=== PATIENT | female | born 1990 | race American Indian/Alaskan Native ===

== ENCOUNTER 2016-09-06 04:53 | Emergency (ER) | payer SELFPAY ==
[2016-09-06 06:25] LABS: Basophils % (Auto) 0.7 % (0.0-1.8); Eosinophils % (Auto) 1.7 % (0.0-4.3); Hemoglobin 13.6 gm/dl (10.1-14.3); Mean Corpuscular HGB Conc 34 % (30-34); Mean Corpuscular Hemoglobin 29 pg (28-32); Mean Corpuscular Volume 85 fl (79-97); Platelet Count 282 K/mm3 (140-440); Red Blood Count 4.69 M/mm3 (3.65-5.03); Red Cell Distribution Width 13.1 % (13.2-15.2); White Blood Count 6.9 K/mm3 (4.5-11.0)
[2016-09-06 06:33] LABS: Bilirubin,Urine NEG (Negative); Blood,Urine SM (Negative); Ketones,Urine NEG (Negative); Leukocyte Esterase,Urine TR (Negative); Mucus,Urine FEW /HPF; Nitrite,Urine NEG (Negative); Protein,Urine <15 mg/dL mg/dL (Negative); Urobilinogen,Urine < 2.0 mg/dL (<2.0)
[2016-09-06 06:36] LABS: Alanine Aminotransferase 19 units/L (7-56); Albumin 4.1 g/dL (3.9-5); Albumin/Globulin Ratio 1.1 %; Alkaline Phosphatase 76 units/L (35-129); Anion Gap 18 mmol/L; BUN/Creatinine Ratio 21.42; Blood Urea Nitrogen 15 mg/dL (7-17); Calcium 9.4 mg/dL (8.4-10.2); Carbon Dioxide 25 mmol/L (22-30); Chloride 99.6 mmol/L (98-107); Glucose 96 mg/dL (65-100); Lipase 42 units/L (13-60); Potassium 4.1 mmol/L (3.6-5.0); Sodium 138 mmol/L (137-145); Total Protein 7.7 g/dL (6.3-8.2)
--- NOTE | 2016-09-06 06:56 | Emergency Department Report ---
Chief Complaint: Abdominal Pain Stated Complaint: STOMACH PAIN W/SWELLING/IRREGULAR MENSTRUAL CYCLES Time Seen by Provider: 09/06/16 06:51 - HPI History of Present Illness: She is 25-year-old female presents to ED complaining of right-sided abdominal pain times a couple months. Patient also states history of irregular cycles. She describes pain as pulling substernal sharp pain localized to her low healthy right region and sometimes umbilical region. She denies fevers/chills/nausea/vomiting/abdominal pain/ chest pains or shortness of breath or any other problems - ROS Review of Systems: As noted in HPI - Exam Vital Signs: Vital Signs 09/06/16 05:21 Temperature 98.1 F Pulse Rate 69 Respiratory 20 Rate Blood Pressure 128/83 O2 Sat by Pulse 100 Oximetry Physical Exam: GENERAL: Alert and oriented x3, no apparent distress, Normal Gait, atraumatic. ABDOMEN: No organomegaly was noted, Positive bowel sounds, soft, and non- distended. no Guarding. Nontender to palpation on all Quadrants, NO CVA tenderness. SKIN: Warm and dry, No lesions, No ulceration or induration present. MSE screening note: Focused history and physical exam performed. Due to findings the following was ordered: ED Medical Decision Making - Lab Data Result diagrams: 09/06/16 05:45 09/06/16 05:45 - Medical Decision Making all Labs are all normal. Urinalysis may suggest mild UTI, UPT negative Discussed this with patient. Discussed the patient possibly fibroids or thyroid dysfunction, which can be followed outpatient with SENSOR OPERATOR or primary care physician. Will order ultrasound. She can be seen by fast track provider. ED Disposition for MSE Condition: Stable Instructions: Abdominal Pain (ED)
--- NOTE | 2016-09-06 07:50 | Ultrasound Report ---
ULTRASOUND PELVIC COMPLETE ULTRASOUND TRANSVAGINAL HISTORY: Pelvic pain, irregular bleeding. TECHNIQUE: Transabdominal and transvaginal ultrasound with color doppler interrogation. Longitudinal and transverse real-time images of the pelvis demonstrate that the uterus and ovaries are present and in a normal location. They are of normal echogenicity, contour and size. No pathologic changes in the adjacent tissues are noted. The endometrium is homogeneous and measures 10 mm. IMPRESSION: Unremarkable transabdominal and transvaginal pelvic ultrasounds.
[2016-09-06] MEDS ORDERED: NACL ONE (08:30)
--- NOTE | 2016-09-06 08:35 | Emergency Department Report ---
ED Abdominal Pain HPI - General Chief Complaint: Abdominal Pain Stated Complaint: STOMACH PAIN W/SWELLING/IRREGULAR MENSTRUAL CYCLES Time Seen by Provider: 09/06/16 06:51 Source: patient Mode of arrival: Ambulatory Limitations: No Limitations - History of Present Illness Initial Comments: This is a 25-year-old female well-nourished with nontoxic or ill in appearance that presents with diffuse intermittent abdominal pain for a couple of months and pelvic pain. Patient stated has been having irregular cycles with hot flash. Patient describes pain as aching and dull diffusely and sometimes in the right sided upper and lower abdomen. Patient describes pain as intermittent cramping and aching. Patient also complains of umbilical region abdominal pain but denies currently. At this current time the patient states abdominal pain hasn't subsided but stated will most likely come back again tonight. Patient denies any aggravating factors. Denies fever, chills, nausea , epigastric pain, vomiting, chest pain, shortness of breath, numbness, tingling , headache, drowsiness, visual changes, stiff neck. Patient denies dysuria, polyuria, discharge, or foul odor in urine. Patient denies any suspicion of sexually transmitted disease. Patient stated her last normal menstrual period for 7 days was on 06/10/2015, and after has been having abnormal menstrual that last only 2-3 days throughout the month. Patient currently states she having an abnormal menstrual period now with spotting. Patient denies any allergies. Denies past medical hx. MD Complaint: abdominal pain (diffuse), other (pelvic pain ) -: Gradual, month(s) (6) Location: diffuse Radiation: none Migration to: no migration Severity: mild Severity scale (0 -10): 6 Quality: cramping, aching Consistency: intermittent Improves With: nothing Worsens With: nothing Associated Symptoms: denies other symptoms. denies: nausea, vomiting, diarrhea , fever, chills, constipation, dysuria, hematemesis, hematochezia, melena, hematuria, anorexia, syncope - Related Data LMP (females 10-50): other (today) Previous Rx's Medication Instructions Recorded Last Taken Type Ibuprofen [Motrin 600 MG tab] 600 mg PO Q8H PRN #15 tablet 09/06/16 Unknown Rx Nitrofurantoin [place]/M-Cryst 100 mg PO Q12HR #10 capsule 09/06/16 Unknown Rx [Macrobid CAP] Allergies Allergy/AdvReac Type Severity Reaction Status Date / Time No Known Allergies Allergy Unverified 09/06/16 05:19 ED Review of Systems ROS: Stated complaint: STOMACH PAIN W/SWELLING/IRREGULAR MENSTRUAL CYCLES Other details as noted in HPI Constitutional: denies: chills, fever Eyes: denies: eye pain, eye discharge, vision change ENT: denies: ear pain, throat pain Respiratory: denies: cough, shortness of breath, wheezing Cardiovascular: denies: chest pain, palpitations Endocrine: no symptoms reported Gastrointestinal: abdominal pain. denies: nausea, vomiting, diarrhea, constipation, hematemesis, melena, hematochezia Genitourinary: denies: urgency, dysuria, discharge Musculoskeletal: denies: back pain, joint swelling, arthralgia Skin: denies: rash, lesions Neurological: denies: headache, weakness, paresthesias Psychiatric: denies: anxiety, depression Hematological/Lymphatic: denies: easy bleeding, easy bruising ED Past Medical Hx - Past Medical History Previous Medical History?: No - Social History Smoking Status: Never Smoker Substance Use Type: None - Medications Home Medications: Home Medications Medication Instructions Recorded Confirmed Last Taken Type Ibuprofen [Motrin 600 MG tab] 600 mg PO Q8H PRN #15 tablet 09/06/16 Unknown Rx Nitrofurantoin [place]/M-Cryst 100 mg PO Q12HR #10 capsule 09/06/16 Unknown Rx [Macrobid CAP] ED Physical Exam - General Limitations: No Limitations General appearance: alert, in no apparent distress - Head Head exam: Present: atraumatic, normocephalic, normal inspection - Eye Eye exam: Present: normal appearance, PERRL, EOMI. Absent: scleral icterus, conjunctival injection, nystagmus, periorbital swelling, periorbital tenderness Pupils: Present: normal accommodation - ENT ENT exam: Present: normal exam, normal orophraynx, mucous membranes moist, TM's normal bilaterally, normal external ear exam - Neck Neck exam: Present: normal inspection, full ROM. Absent: tenderness, meningismus, lymphadenopathy, thyromegaly - Respiratory Respiratory exam: Present: normal lung sounds bilaterally. Absent: respiratory distress, wheezes, rales, rhonchi, stridor, chest wall tenderness, accessory muscle use, decreased breath sounds, prolonged expiratory - Cardiovascular Cardiovascular Exam: Present: regular rate, normal rhythm, normal heart sounds. Absent: bradycardia, tachycardia, irregular rhythm, systolic murmur, diastolic murmur, rubs, gallop - GI/Abdominal GI/Abdominal exam: Present: soft, normal bowel sounds. Absent: distended, tenderness, guarding, rebound, rigid, diminished bowel sounds, hyperactive bowel sounds, hypoactive bowel sounds, organomegaly, bruit, pulsatile mass, other (epigastric pain) - Expanded GI/Abdominal Exam Expanded GI/Abdominal exam: Absent: psoas sign, obturator sign, heel tap sign, Winslow's sign, Rovsing's sign, tenderness at Mcburney's Point, ascites - Rectal Rectal exam: Present: deferred - External exam: Present: normal external exam. Absent: erythema, swelling, lesions, lacerations, ecchymosis, bleeding Speculum exam: Present: normal speculum exam, vaginal bleeding (slight ). Absent: erythema, vaginal discharge, cervical discharge, foreign body, tissue, laceration Bi-manual exam: Present: normal bi-manual exam. Absent: cervical motion tendernes, adnexal tenderness, adnexal mass, uterine enlargement, uterine tenderness - Extremities Exam Extremities exam: Present: normal inspection, full ROM, normal capillary refill. Absent: tenderness, pedal edema, joint swelling, calf tenderness - Back Exam Back exam: Present: normal inspection, full ROM. Absent: tenderness, CVA tenderness (R), CVA tenderness (L), muscle spasm, paraspinal tenderness, vertebral tenderness, rash noted - Neurological Exam Neurological exam: Present: alert, oriented X3, CN II-XII intact, normal gait - Psychiatric Psychiatric exam: Present: normal affect, normal mood - Skin Skin exam: Present: warm, dry, intact, normal color. Absent: rash - Other Other exam information: Bimanual/pelvic speculum exam has been performed with amrita Lucas RN. ED Course Vital Signs 09/06/16 09/06/16 09/06/16 05:21 09:25 09:26 Temperature 98.1 F 97.6 F Pulse Rate 69 109 H Respiratory 20 16 16 Rate Blood Pressure 128/83 Blood Pressure 113/64 [Left] O2 Sat by Pulse 100 97 97 Oximetry ED Medical Decision Making - Lab Data Result diagrams: 09/06/16 05:45 09/06/16 05:45 - Medical Decision Making ED course: This is a 25-year-old female that presents with diffuse cramping pelvic/abdomen region with irregular menstrual cycles 1- after my physical exam, a CT of abdomen/pelvis with contrast has been obtained. 2- transvaginal and pelvic ultrasound has been obtained as well prior to me evaluating the patient with Normal findings. Dictated by Dr. Norwood. 3- UA, CBC, BMP, and test has been obtained. UA indicates elevated epithelial cells with leukocyte trace and small urine blood. 4- gonorrhea chlamydia and wet prep has been obtained. Patient was instructed to return to medical records in 3-5 business days to obtain results of gonorrhea /chlamydia. 5- a bimanual and speculum exam has been performed. 6- patient has been notified of all lab results as well as CT and pelvic ultrasound. The further course noted by the patient. 7- patient was instructed to follow-up with a data typist/primary care doctor in 24 hours or if symptoms worsen in unbearable report back to emergency room as soon as possible. 8- due to the findings of UTI suspicion patient received Macrobid for 5 days and was instructed to finish full course of antibiotics as prescribed. 9- at time time of discharge, the patient does not seem toxic or ill in appearance. No acute signs of distress noted. Patient agrees to discharge treatment plan of care. No further questions noted by the patient. Critical care attestation.: If time is entered above; I have spent that time in minutes in the direct care of this critically ill patient, excluding procedure time. ED Disposition Clinical Impression: Abnormal menstrual cycle, Dysmenorrhea Abdominal pain Qualifiers: Abdominal location: unspecified location Qualified Code(s): R10.9 - Unspecified abdominal pain Disposition: DC-01 TO HOME OR SELFCARE Is pt being admited?: No Does the pt Need Aspirin: No Condition: Stable Instructions: Dysmenorrhea (ED), Abdominal Pain (ED) Additional Instructions: Follow-up with a data typist/primary care doctor in 24 hours or if symptoms worsen in unbearable report back to emergency room as soon as possible. Take full course of antibiotics as prescribed. Prescriptions: Ibuprofen [Motrin 600 MG tab] 600 mg PO Q8H PRN #15 tablet PRN Reason: Pain Nitrofurantoin [place]/M-Cryst [Macrobid CAP] 100 mg PO Q12HR #10 capsule Referrals: [facility] [Outside] - 3-5 Days [facility] [Outside] - 3-5 Days NIXON ECHAVARRIA JR, MD [Staff Physician] - 3-5 Days MARIA HATCH MD [Staff Physician] - 24 Hours PRIMARY CAREMD [Primary Care Provider] - 24 Hours Forms: Work/School Release Form(ED)
--- NOTE | 2016-09-06 09:17 | Cat Scan Report ---
CT SCAN OF THE ABDOMEN AND PELVIS WITH CONTRAST: HISTORY: Abdominal pain. TECHNIQUE: Helical CT in 1.25mm intervals following IV contrast. Sagittal and coronal reconstructions. FINDINGS: The liver is normal in size and is without focal defect. No gallstones or biliary dilatation are noted. The spleen and pancreas demonstrate a normal size and attenuation with no evidence of abnormal mass. The kidneys are normal in size and position with no evidence of hydronephrosis or mass. The adrenal glands are normal. There is no intestinal obstruction or ascites. Normal appendix. The abdominal aorta is normal. No abnormalities are identified within the retroperitoneum or mesentery. There is no evidence of peritoneal air or fluid. There is no evidence of any abnormal masses or fluid collections within the pelvis. No adenopathy is identified. The bladder is normal. IMPRESSION: Unremarkable CT scan of the abdomen and pelvis with contrast.
[2016-09-06 09:26] VITALS: BP 113/64
== END 2016-09-06 11:19 | disposition home or self-care (01) ==
LOC: ED 04:53
DX: N94.6 Dysmenorrhea, unspecified (principal); N92.5 Other specified irregular menstruation; R10.84 Generalized abdominal pain
CPT/HCPCS: 36415; 74177; 76830; 76856; 80053; 81001; 83690; 84703; 85025; 87210; 87591; 99284; Q9967

== ENCOUNTER 2018-06-24 02:40 | Emergency (ER) | payer OTHER ==
[2018-06-24 03:48] VITALS: BP 136/89
--- NOTE | 2018-06-24 04:11 | XRay Report ---
PROCEDURE: XR WRIST 3+V LT TECHNIQUE: Left wrist radiographs, including AP, lateral, and oblique views. HISTORY: Left wrist and palm pain COMPARISONS: None . FINDINGS: Fracture (s) and/or Dislocation(s): None . Alignment: Normal . Joint space(s): Normal . Soft tissues: Normal . Bone mineralization: Normal . Foreign bodies: None . IMPRESSION: Normal Examination . This document is electronically signed by Karrie Clay DO., June 24 2018 04:09:21 AM ET
--- NOTE | 2018-06-24 07:49 | Emergency Department Report ---
Upper Extremity - HPI Chief Complaint: Extremity Injury, Upper Stated Complaint: L HAND PAIN Time Seen by Provider: 06/24/18 07:25 Upper Extremity: Left Wrist (pain ,swelling after injury) Occurred When: 2 Days Mechanism: Hyperextension, Twist Severity: moderate (5/10) Symptoms: Yes Pain with Movement (left wrist), Yes Limited Range of Movement (pain with movement), Yes Swelling, No Deformity, No Numbness, No Weakness, No Bruising/Ecchymosis, No Laceration or Abrasion Other History: This is a 27-year-old female here because she injured her left wrist pain and reported that she injured her left wrist 2 days ago and is swollen and painful. Denies any numbness or tingling or any change in color. No medication taken. Denies any broken skin. ED Review of Systems ROS: Stated complaint: L HAND PAIN Other details as noted in HPI Constitutional: denies: chills, fever Respiratory: denies: cough, shortness of breath, wheezing Cardiovascular: denies: chest pain, palpitations, edema, syncope Musculoskeletal: joint swelling, arthralgia. denies: back pain, myalgia Skin: denies: rash Neurological: denies: headache, numbness, paresthesias ED Past Medical Hx - Past Medical History Previous Medical History?: No - Surgical History Past Surgical History?: No - Family History Family history: hypertension - Social History Smoking Status: Never Smoker Substance Use Type: None - Medications Home Medications: Home Medications Medication Instructions Recorded Confirmed Last Taken Type Nitrofurantoin [place]/M-Cryst 100 mg PO Q12HR #10 capsule 09/06/16 Unknown Rx [Macrobid CAP] Acetaminophen/Codeine [Tylenol 1 tab PO Q6H PRN #12 tab 06/24/18 Unknown Rx /Codeine # 3 tab] Ibuprofen [Motrin 600 MG tab] 600 mg PO Q8H PRN #15 tablet 06/24/18 Unknown Rx Upper Extremity Exam - Exam General: Vital signs noted. No distress. Alert and acting appropriately. Head and Torso: No HEENT Abnormality, No Neck Tenderness, No Chest/Lungs Abnormality, No Abdominal Tenderness, No Back Tenderness Shoulder Exam: Yes Normal Range of Motion in Shoulder, No Shoulder Tenderness, No Clavicle Tenderness, No Shoulder Deformity, No AC Joint Tenderness Arm Exam: No Arm/Humerus Tenderness, No Arm Deformity Elbow: Yes Normal Range of Motion in Elbow, No Elbow Tenderness, No Elbow Deformity Forearm: No Forearm Tenderness, No Forearm Deformity, No Pain with Pronation, No Pain with Supination Wrist: Yes Wrist Tenderness (palmar aspect of left wrist radial side), Yes Normal ROM in Wrist (pain with range of motion), No Wrist Deformity, No Snuffbox Tenderness, No Pain with Axial Thumb Compression Hand: Yes Normal ROM in Digit(s), No Hand Tenderness, No Hand Deformity, No Digit Tenderness, No Digit(s) Deformity, No Tendon Dysfunction CMS Exam: Yes Normal Distal Pulses (No cce. + 2 pulses in all extremities, no neurovascular compromise), Yes Normal Capillary Refill (less than 2 seconds), Yes Normal Distal Sensation, No Broken Skin ED Course Vital Signs 06/24/18 03:45 Temperature 97.8 F Pulse Rate 75 Blood Pressure 136/89 O2 Sat by Pulse 98 Oximetry - Reevaluation(s) Reevaluation #1: 06/24/18 08:52 Patient given Motrin 800 mg at emergency room which relieved her wrist pain. She was placed in Velcro wrist splint and said pain is better. - Orthopedic Splinting/Casting Injury #1 Side: left Upper Extremity Injury Location: wrist Upper Extremity Immobilizer: wrist splint Additional Comments: Patient will good color, movement and sensation and temperature to fingers of left hand. ED Medical Decision Making - Radiology Data Radiology results: report reviewed Three-view x-ray of left wrist dictated by radiologist and reviewed by myself. See results below Findings [facility] [address] [place] [address] XRay Report Signed Patient: TIERNEY CLAY MR#: [id number] : 1990 Acct:[id number] Age/Sex: 27 / F ADM Date: 06/24/18 Loc: ED Attending Dr: Ordering Physician: ERIN DOWNEY MD Date of Service: 06/24/18 Procedure(s): XR wrist 3+V LT Accession Number(s): [id number] cc: ERIN DOWNEY MD Fluoro Time In Minutes: PROCEDURE: XR WRIST 3+V LT TECHNIQUE: Left wrist radiographs, including AP, lateral, and oblique views. HISTORY: Left wrist and palm pain COMPARISONS: None . FINDINGS: Fracture (s) and/or Dislocation(s): None . Alignment: Normal . Joint space(s): Normal . Soft tissues: Normal . Bone mineralization: Normal . Foreign bodies: None . IMPRESSION: Normal Examination . This document is electronically signed by Karrie Clay DO., June 24 2018 04:09:21 AM ET Transcribed By: [facility] Dictated By: KARRIE CLAY MD Electronically Authenticated By: KARRIE CLAY MD Signed Date/Time: 06/24/18410 DD/ 0 TD/TT: 06/24/18400 - Medical Decision Making This is a 27-year-old female here for left wrist injury 2 days ago. She reports pain and swelling. X-ray dictated radiologist report reviewed by myself and shows no fracture or dislocation. She has superficial swelling to palmar side of her wrists radial bone with tenderness to palpate. Patient with wrists sprain and was given Motrin which relieved her pain and Velcro wrist splint applied. See procedure note for detail. Patient discharged home in stable condition to rest, ice, compress and elevate affected area and to follow-up with orthopedic doctor if she continues to have pain. Discharge home on Motrin and Tylenol 3. She voiced understanding the discharge diagnosis and treatment plan - Differential Diagnosis fracture versus sprain versus musculoskeletal pain Critical care attestation.: If time is entered above; I have spent that time in minutes in the direct care of this critically ill patient, excluding procedure time. ED Disposition Clinical Impression: Left wrist sprain Qualifiers: Encounter type: initial encounter Qualified Code(s): S63.502A - Unspecified sprain of left wrist, initial encounter Disposition: TO HOME OR SELFCARE Is pt being admited?: No Does the pt Need Aspirin: No Condition: Stable Instructions: Wrist Injury (ED), Wrist Sprain (ED), RICE Therapy (ED) Additional Instructions: Please follow discharge instruction paperwork on rice therapy Follow up with orthopedic doctor in 3-5 days if your wrist is not any better. Take Tylenol 3 for severe pain and please do not drive or operate heavy machinery while taking this medication otherwise take Motrin for mild to moderate pain Prescriptions: Ibuprofen [Motrin 600 MG tab] 600 mg PO Q8H PRN #15 tablet PRN Reason: Pain Acetaminophen/Codeine [Tylenol /Codeine # 3 tab] 1 tab PO Q6H PRN #12 tab PRN Reason: severe pain [facility] [Primary Care Provider] - 3-5 Days EUNICE PALMA MD [Staff Physician] - 3-5 Days Forms: Work/School Release Form(ED), Accompanied Note
[2018-06-24] MEDS ORDERED: IBUPROFEN PO ONE (08:04)
== END 2018-06-24 09:05 | disposition home or self-care (01) ==
LOC: ED 02:40
DX: S63.502A Unspecified sprain of left wrist, initial encounter (principal); X58.XXXA Exposure to other specified factors, initial encounter; Y93.89 Activity, other specified; Y92.89 Other specified places as the place of occurrence of the external cause; Y99.8 Other external cause status

== ENCOUNTER 2018-08-26 12:01 | Emergency (ER) | payer SELFPAY ==
--- NOTE | 2018-08-26 12:24 | Emergency Department Report ---
Blank Doc - Documentation Documentation: 27 y o female presents with sore throat staes recent exposure to sick niece and symptoms started after that cc of intermittent fever, pain with swallowinng rapid strep ordered
[2018-08-26 12:29] VITALS: BP 138/80
[2018-08-26] MEDS ORDERED: BICILLIN L-A IM ONE (13:42)
--- NOTE | 2018-08-26 13:44 | Emergency Department Report ---
ED ENT HPI - General Chief complaint: Sore Throat Stated complaint: SORE THROAT Time Seen by Provider: 08/26/18 12:21 Source: patient Mode of arrival: Ambulatory Limitations: No Limitations - History of Present Illness Initial comments: Chief complaint: I knew I have strep throat." HPI 27-year-old healthy female who presents with sore throat swollen lymph nodes in her neck for the past several days. She had a sick contact family member with sore throat. Mild symptoms. Denies cough. Subjective fever. No nasal congestion. MD complaint: sore throat -: Gradual, days(s) (2) Location: throat Severity: mild Quality: burning, aching Consistency: constant Improves with: swallowing Worsens with: none Context- Dental: other (sick contact) - Related Data Previous Rx's Medication Instructions Recorded Last Taken Type Nitrofurantoin [place]/M-Cryst 100 mg PO Q12HR #10 capsule 09/06/16 Unknown Rx [Macrobid CAP] Acetaminophen/Codeine [Tylenol 1 tab PO Q6H PRN #12 tab 06/24/18 Unknown Rx /Codeine # 3 tab] Ibuprofen [Motrin 600 MG tab] 600 mg PO Q8H PRN #15 tablet 06/24/18 Unknown Rx Allergies Allergy/AdvReac Type Severity Reaction Status Date / Time No Known Allergies Allergy Verified 08/26/18 12:01 ED Dental HPI - General Chief complaint: Sore Throat Stated complaint: SORE THROAT Time Seen by Provider: 08/26/18 12:21 Source: patient Mode of arrival: Ambulatory Limitations: No Limitations - Related Data Previous Rx's Medication Instructions Recorded Last Taken Type Nitrofurantoin [place]/M-Cryst 100 mg PO Q12HR #10 capsule 09/06/16 Unknown Rx [Macrobid CAP] Acetaminophen/Codeine [Tylenol 1 tab PO Q6H PRN #12 tab 06/24/18 Unknown Rx /Codeine # 3 tab] Ibuprofen [Motrin 600 MG tab] 600 mg PO Q8H PRN #15 tablet 06/24/18 Unknown Rx Allergies Allergy/AdvReac Type Severity Reaction Status Date / Time No Known Allergies Allergy Verified 08/26/18 12:01 ED Review of Systems ROS: Stated complaint: SORE THROAT Other details as noted in HPI Constitutional: fever, malaise Respiratory: denies: cough, shortness of breath, wheezing ED Past Medical Hx - Past Medical History Previous Medical History?: No - Surgical History Past Surgical History?: No - Social History Smoking Status: Never Smoker Substance Use Type: None - Medications Home Medications: Home Medications Medication Instructions Recorded Confirmed Last Taken Type Nitrofurantoin [place]/M-Cryst 100 mg PO Q12HR #10 capsule 09/06/16 Unknown Rx [Macrobid CAP] Acetaminophen/Codeine [Tylenol 1 tab PO Q6H PRN #12 tab 06/24/18 Unknown Rx /Codeine # 3 tab] Ibuprofen [Motrin 600 MG tab] 600 mg PO Q8H PRN #15 tablet 06/24/18 Unknown Rx ED Physical Exam - General Limitations: No Limitations General appearance: alert, in no apparent distress - Head Head exam: Present: atraumatic, normocephalic - Eye Eye exam: Absent: scleral icterus, conjunctival injection, nystagmus - ENT ENT exam: Present: other (erythematous edematous tonsils not touching uvula symmetric in size) - Neck Neck exam: Present: normal inspection, full ROM. Absent: meningismus - Respiratory Respiratory exam: Present: normal lung sounds bilaterally. Absent: respiratory distress, wheezes, rales, rhonchi - Neurological Exam Neurological exam: Present: alert, oriented X3 - Psychiatric Psychiatric exam: Present: normal affect, normal mood - Skin Skin exam: Present: warm, dry, intact, normal color ED Course Vital Signs 08/26/18 12:28 Temperature 98.9 F Pulse Rate 103 H Respiratory 18 Rate Blood Pressure 138/80 O2 Sat by Pulse 99 Oximetry ED Medical Decision Making - Medical Decision Making Streptococcal pharyngitis positive rapid strep Given Bicillin in the emergency department Critical care attestation.: If time is entered above; I have spent that time in minutes in the direct care of this critically ill patient, excluding procedure time. ED Disposition Clinical Impression: Acute streptococcal pharyngitis Disposition: DC- TO HOME OR SELFCARE Is pt being admited?: No Does the pt Need Aspirin: No Condition: Stable Instructions: Strep Throat (ED) Referrals: KRISTINE GARCIA MD [Primary Care Provider] - 3-5 Days Forms: Work/School Release Form(ED)
== END 2018-08-26 14:50 | disposition home or self-care (01) ==
LOC: ED 12:01
DX: J02.0 Streptococcal pharyngitis (principal)
CPT/HCPCS: 87430; 99283; J0561

== ENCOUNTER 2018-11-24 07:04 | Emergency (ER) | payer OTHER ==
[2018-11-24 07:15] VITALS: BP 129/78
[2018-11-24 07:51] LABS: Bacteria,Urine 1+ /HPF (Negative); Bilirubin,Urine NEG (Negative); Blood,Urine NEG (Negative); Color,Urine Yellow (Yellow); Protein,Urine <15 mg/dL mg/dL (Negative); Urobilinogen,Urine < 2.0 mg/dL (<2.0)
[2018-11-24 07:52] LABS: HCG Qualitative,Urine Negative (Negative)
--- NOTE | 2018-11-24 08:53 | Emergency Department Report ---
ED Female HPI - General Chief complaint: Urogenital-Female Stated complaint: FREQ URINATION/PAINFUL Time Seen by Provider: 11/24/18 07:50 Source: patient Mode of arrival: Ambulatory Limitations: No Limitations - History of Present Illness Initial comments: This is a 27-year-old -Iranian female presents to the emergency room with urinary frequency and bladder pressure for 1 week. Patient states she is currently not sexually active. Her last menstrual period was 10/26/2018, 0. She denies hematuria, dysuria, vaginal discharge, or back pain. MD Complaint: other (urinary frequency) Onset/Timin -: week(s) Location: suprapubic Radiation: non-radiating Severity: mild Severity scale (0 -10): 2 Quality: other (pressure) Consistency: intermittent Improves with: none Worsens with: none Are you Now?: No Last Menstrual Period: 10/26/18 EDC: 08/02/19 Associated Symptoms: denies other symptoms - Related Data Sexually active: No : 0 Previous Rx's Medication Instructions Recorded Last Taken Type Acetaminophen/Codeine [Tylenol 1 tab PO Q6H PRN #12 tab 06/24/18 Unknown Rx /Codeine # 3 tab] Ibuprofen [Motrin 600 MG tab] 600 mg PO Q8H PRN #15 tablet 06/24/18 Unknown Rx Nitrofurantoin [place]/M-Cryst 100 mg PO Q12HR #14 capsule 10/25/18 Unknown Rx [Macrobid CAP] metroNIDAZOLE [Flagyl] 500 mg PO Q12HR #14 tab 10/25/18 Unknown Rx Fluconazole [Diflucan TAB] 150 mg PO ONCE #1 tablet 11/24/18 Unknown Rx metroNIDAZOLE [Flagyl TAB] 500 mg PO Q12HR #14 tab 11/24/18 Unknown Rx Allergies Allergy/AdvReac Type Severity Reaction Status Date / Time No Known Allergies Allergy Verified 11/24/18 07:06 ED Review of Systems ROS: Stated complaint: FREQ URINATION/PAINFUL Other details as noted in HPI Constitutional: denies: chills, fever Respiratory: denies: cough, shortness of breath, wheezing Cardiovascular: denies: chest pain, palpitations Gastrointestinal: abdominal pain (the pubic pressure). denies: nausea, diarrhea Genitourinary: frequency. denies: urgency, dysuria, discharge Musculoskeletal: denies: back pain, joint swelling, arthralgia Skin: denies: rash, lesions Neurological: denies: headache, weakness, paresthesias ED Past Medical Hx - Past Medical History Previous Medical History?: No - Surgical History Past Surgical History?: No - Social History Smoking Status: Current Some Day Smoker Substance Use Type: Alcohol - Medications Home Medications: Home Medications Medication Instructions Recorded Confirmed Last Taken Type Acetaminophen/Codeine [Tylenol 1 tab PO Q6H PRN #12 tab 06/24/18 Unknown Rx /Codeine # 3 tab] Ibuprofen [Motrin 600 MG tab] 600 mg PO Q8H PRN #15 tablet 06/24/18 Unknown Rx Nitrofurantoin [place]/M-Cryst 100 mg PO Q12HR #14 capsule 10/25/18 Unknown Rx [Macrobid CAP] metroNIDAZOLE [Flagyl] 500 mg PO Q12HR #14 tab 10/25/18 Unknown Rx Fluconazole [Diflucan TAB] 150 mg PO ONCE #1 tablet 11/24/18 Unknown Rx metroNIDAZOLE [Flagyl TAB] 500 mg PO Q12HR #14 tab 11/24/18 Unknown Rx ED Physical Exam - General Limitations: No Limitations General appearance: alert, in no apparent distress, obese - Respiratory Respiratory exam: Present: normal lung sounds bilaterally. Absent: respiratory distress - Cardiovascular Cardiovascular Exam: Present: regular rate, normal rhythm. Absent: systolic murmur, diastolic murmur, rubs, gallop - GI/Abdominal GI/Abdominal exam: Present: soft, normal bowel sounds. Absent: distended, tenderness, guarding, rebound, rigid - External exam: Present: normal external exam. Absent: erythema, swelling, lesions, lacerations, ecchymosis, bleeding Speculum exam: Present: vaginal discharge (malodorous white). Absent: cervical discharge, vaginal bleeding, foreign body, tissue, laceration Bi-manual exam: Present: normal bi-manual exam. Absent: cervical motion tendernes - Back Exam Back exam: Absent: CVA tenderness (R), CVA tenderness (L) - Neurological Exam Neurological exam: Present: alert, oriented X3, normal gait - Psychiatric Psychiatric exam: Present: normal affect, normal mood - Skin Skin exam: Present: warm, dry, intact, normal color. Absent: rash ED Course Vital Signs 11/24/18 07:13 Temperature 98.2 F Pulse Rate 75 Respiratory 20 Rate Blood Pressure 129/78 O2 Sat by Pulse 100 Oximetry ED Medical Decision Making - Lab Data Lab Results 11/24/18 Range/Units 07:36 Urine Color Yellow (Yellow) Urine Turbidity Clear (Clear) Urine pH 8.0 H (5.0-7.0) Ur Specific [place] 1.016 (1.003-1.030) Urine Protein <15 mg/dl (Negative) mg/dL Urine Glucose (UA) Neg (Negative) mg/dL Urine Ketones Neg (Negative) mg/dL Urine Blood Neg (Negative) Urine Nitrite Neg (Negative) Urine Bilirubin Neg (Negative) Urine Urobilinogen < 2.0 (<2.0) mg/dL Ur Leukocyte Esterase Neg (Negative) Urine WBC (Auto) 1.0 (0.0-6.0) /HPF Urine RBC (Auto) 2.0 (0.0-6.0) /HPF U Epithel Cells (Auto) 4.0 (0-13.0) /HPF Urine Bacteria (Auto) 1+ (Negative) /HPF Urine HCG, Qual Negative (Negative) - Medical Decision Making Patient was examined by me. Vitals are stable and in no acute distress. Patient was treated for acute vaginitis and trichomoniasis 1 week ago. She is still experiencing vaginal discharge and itching sensation. A urinalysis and wet prep was obtained. Wet prep positive clue cells and yeast, negative trichomoniasis. Urinalysis unremarkable. Review labs from last week and gonorrhea chlamydia was negative. Review lab results from today and last week with patient. Start metronidazole and Diflucan. Discharged home in stable condition. Discussed prevention options. F/U with PCP or Health Department. Critical care attestation.: If time is entered above; I have spent that time in minutes in the direct care of this critically ill patient, excluding procedure time. ED Disposition Clinical Impression: Bacterial vaginitis, Vulvovaginal candidiasis Disposition: -01 TO HOME OR SELFCARE Is pt being admited?: No Does the pt Need Aspirin: No Condition: Stable Instructions: Bacterial Vaginosis (ED), Vulvovaginal Candidiasis (ED) Additional Instructions: Take Diflucan after completing 7 days of metronidazole antibiotic. Avoid drinking alcohol while taking antibiotics and for 24 hours after completion. Complete full course of antibiotics as prescribed. Continue safe sexual intercourse. Follow up with Primary Care Provider or health department. Prescriptions: Fluconazole [Diflucan TAB] 150 mg PO ONCE #1 tablet metroNIDAZOLE [Flagyl TAB] 500 mg PO Q12HR #14 tab Referrals: [facility] [Outside] - 3-5 Days [facility] [Outside] - 3-5 Days Forms: STI Treatment and Prevention Time of Disposition: 10:56
== END 2018-11-24 11:10 | disposition home or self-care (01) ==
LOC: ED 07:04
DX: N76.0 Acute vaginitis (principal); B96.89 Other specified bacterial agents as the cause of diseases classified elsewhere; B37.3 Candidiasis of vulva and vagina; F17.200 Nicotine dependence, unspecified, uncomplicated; Z79.899 Other long term (current) drug therapy
CPT/HCPCS: 81001; 81025; 87210

== ENCOUNTER 2019-01-22 06:41 | Emergency (ER) | payer OTHER ==
[2019-01-22 06:50] VITALS: BP 128/86
[2019-01-22 07:19] LABS: Bilirubin,Urine NEG (Negative); Blood,Urine NEG (Negative); Color,Urine Straw (Yellow); Mucus,Urine FEW /HPF; Protein,Urine <15 mg/dL mg/dL (Negative); Urobilinogen,Urine < 2.0 mg/dL (<2.0)
[2019-01-22 07:46] LABS: Basophils % (Auto) 0.7 % (0.0-1.8); Eosinophils # (Auto) 0.2 K/mm3 (0.0-0.4); Eosinophils % (Auto) 3.7 % (0.0-4.3); Hematocrit 39.3 % (30.3-42.9); Hemoglobin 13.3 gm/dl (10.1-14.3); Lymphocytes # (Auto) 2.9 K/mm3 (1.2-5.4); Lymphocytes % (Auto) 47.3 % (13.4-35.0); Mean Corpuscular HGB Conc 34 % (30-34); Mean Corpuscular Volume 87 fl (79-97); Monocytes # (Auto) 0.5 K/mm3 (0.0-0.8); Monocytes % (Auto) 8.3 % (0.0-7.3); Platelet Count 286 K/mm3 (140-440); Red Cell Distribution Width 13.3 % (13.2-15.2)
--- NOTE | 2019-01-22 07:47 | Emergency Department Report ---
ED Female HPI - General Chief complaint: Abdominal Pain Stated complaint: ABD PAIN Time Seen by Provider: 01/22/19 07:31 Source: patient Mode of arrival: Ambulatory Limitations: No Limitations - History of Present Illness Initial comments: This is a 28-year-old -[place] female who presents to the emergency room with vaginal discharge, vaginal irritation and pain for several days. Patient states she was recently treated for trichomoniasis and bacterial vaginitis 2-3 months ago. Patient reports symptoms are very similar to the last time. She denies urinary frequency, urgency, dysuria, pelvic pain, back pain, fever, or chills. Onset/Timin -: days(s) Severity: mild Severity scale (0 -10): 3 Quality: aching Consistency: intermittent Improves with: none Worsens with: urination Are you Now?: No Last Menstrual Period: 01/10/19 EDC: 10/17/19 Associated Symptoms: vaginal discharge. denies: vaginal bleeding, abdominal pain, nausea/vomiting, fever/chills, dysuria, hematuria - Related Data Sexually active: Yes Previous Rx's Medication Instructions Recorded Last Taken Type Acetaminophen/Codeine [Tylenol 1 tab PO Q6H PRN #12 tab 06/24/18 Unknown Rx /Codeine # 3 tab] Ibuprofen [Motrin 600 MG tab] 600 mg PO Q8H PRN #15 tablet 06/24/18 Unknown Rx Nitrofurantoin [place]/M-Cryst 100 mg PO Q12HR #14 capsule 10/25/18 Unknown Rx [Macrobid CAP] metroNIDAZOLE [Flagyl] 500 mg PO Q12HR #14 tab 10/25/18 Unknown Rx Fluconazole [Diflucan TAB] 150 mg PO ONCE #1 tablet 11/24/18 Unknown Rx metroNIDAZOLE [Flagyl TAB] 500 mg PO Q12HR #14 tab 11/24/18 Unknown Rx Allergies Allergy/AdvReac Type Severity Reaction Status Date / Time No Known Allergies Allergy Verified 11/24/18 07:06 ED Review of Systems ROS: Stated complaint: ABD PAIN Other details as noted in HPI Constitutional: denies: chills, fever Respiratory: denies: cough, shortness of breath, wheezing Cardiovascular: denies: chest pain, palpitations Gastrointestinal: denies: abdominal pain, nausea, diarrhea Genitourinary: discharge. denies: urgency, dysuria Musculoskeletal: as per HPI Neurological: denies: headache, weakness, paresthesias Psychiatric: denies: anxiety, depression ED Past Medical Hx - Past Medical History Previous Medical History?: No - Surgical History Past Surgical History?: No - Social History Smoking Status: Never Smoker Substance Use Type: None - Medications Home Medications: Home Medications Medication Instructions Recorded Confirmed Last Taken Type Acetaminophen/Codeine [Tylenol 1 tab PO Q6H PRN #12 tab 06/24/18 Unknown Rx /Codeine # 3 tab] Ibuprofen [Motrin 600 MG tab] 600 mg PO Q8H PRN #15 tablet 06/24/18 Unknown Rx Nitrofurantoin [place]/M-Cryst 100 mg PO Q12HR #14 capsule 10/25/18 Unknown Rx [Macrobid CAP] metroNIDAZOLE [Flagyl] 500 mg PO Q12HR #14 tab 10/25/18 Unknown Rx Fluconazole [Diflucan TAB] 150 mg PO ONCE #1 tablet 11/24/18 Unknown Rx metroNIDAZOLE [Flagyl TAB] 500 mg PO Q12HR #14 tab 11/24/18 Unknown Rx ED Physical Exam - General Limitations: No Limitations General appearance: alert, in no apparent distress, obese - Respiratory Respiratory exam: Present: normal lung sounds bilaterally. Absent: respiratory distress - Cardiovascular Cardiovascular Exam: Present: regular rate, normal rhythm. Absent: systolic murmur, diastolic murmur, rubs, gallop - GI/Abdominal GI/Abdominal exam: Present: soft, normal bowel sounds ED Course Vital Signs 01/22/19 06:45 Temperature 98.0 F Pulse Rate 72 Respiratory 18 Rate Blood Pressure 128/86 O2 Sat by Pulse 100 Oximetry ED Medical Decision Making - Lab Data Result diagrams: 01/22/19 07:08 01/22/19 07:08 Lab Results 01/22/19 01/22/19 01/22/19 Range/Units 07:08 07:08 07:08 WBC 6.2 (4.5-11.0) K/mm3 RBC 4.50 (3.65-5.03) M/mm3 Hgb 13.3 (10.1-14.3) gm/dl Hct 39.3 (30.3-42.9) % MCV 87 (79-97) fl MCH 30 (28-32) pg MCHC 34 (30-34) % RDW 13.3 (13.2-15.2) % Plt Count 286 (140-440) K/mm3 Lymph % (Auto) 47.3 H (13.4-35.0) % Todd % (Auto) 8.3 H (0.0-7.3) % Eos % (Auto) 3.7 (0.0-4.3) % Baso % (Auto) 0.7 (0.0-1.8) % Lymph # 2.9 (1.2-5.4) K/mm3 Todd # 0.5 (0.0-0.8) K/mm3 Eos # 0.2 (0.0-0.4) K/mm3 Baso # 0.0 (0.0-0.1) K/mm3 Seg Neutrophils % 40.0 (40.0-70.0) % Seg Neutrophils # 2.5 (1.8-7.7) K/mm3 Sodium 138 (137-145) mmol/L Potassium 4.4 (3.6-5.0) mmol/L Chloride 101.2 (98-107) mmol/L Carbon Dioxide 24 (22-30) mmol/L Anion Gap 17 mmol/L BUN 13 (7-17) mg/dL Creatinine 0.8 (0.7-1.2) mg/dL Estimated GFR > 60 ml/min BUN/Creatinine Ratio 16 % Glucose 94 (65-100) mg/dL Calcium 9.4 (8.4-10.2) mg/dL Total Bilirubin 0.30 (0.1-1.2) mg/dL AST 16 (5-40) units/L ALT 14 (7-56) units/L Alkaline Phosphatase 63 (35-129) units/L Total Protein 7.9 (6.3-8.2) g/dL Albumin 4.2 (3.9-5) g/dL Albumin/Globulin Ratio 1.1 % HCG, Qual Negative (Negative) Urine Color (Yellow) Urine Turbidity (Clear) Urine pH (5.0-7.0) Ur Specific [place] (1.003-1.030) Urine Protein (Negative) mg/dL Urine Glucose (UA) (Negative) mg/dL Urine Ketones (Negative) mg/dL Urine Blood (Negative) Urine Nitrite (Negative) Urine Bilirubin (Negative) Urine Urobilinogen (<2.0) mg/dL Ur Leukocyte Esterase (Negative) Urine WBC (Auto) (0.0-6.0) /HPF Urine RBC (Auto) (0.0-6.0) /HPF U Epithel Cells (Auto) (0-13.0) /HPF Urine Mucus /HPF 01/22/19 Range/Units Unknown WBC (4.5-11.0) K/mm3 RBC (3.65-5.03) M/mm3 Hgb (10.1-14.3) gm/dl Hct (30.3-42.9) % MCV (79-97) fl MCH (28-32) pg MCHC (30-34) % RDW (13.2-15.2) % Plt Count (140-440) K/mm3 Lymph % (Auto) (13.4-35.0) % Todd % (Auto) (0.0-7.3) % Eos % (Auto) (0.0-4.3) % Baso % (Auto) (0.0-1.8) % Lymph # (1.2-5.4) K/mm3 Todd # (0.0-0.8) K/mm3 Eos # (0.0-0.4) K/mm3 Baso # (0.0-0.1) K/mm3 Seg Neutrophils % (40.0-70.0) % Seg Neutrophils # (1.8-7.7) K/mm3 Sodium (137-145) mmol/L Potassium (3.6-5.0) mmol/L Chloride (98-107) mmol/L Carbon Dioxide (22-30) mmol/L Anion Gap mmol/L BUN (7-17) mg/dL Creatinine (0.7-1.2) mg/dL Estimated GFR ml/min BUN/Creatinine Ratio % Glucose (65-100) mg/dL Calcium (8.4-10.2) mg/dL Total Bilirubin (0.1-1.2) mg/dL AST (5-40) units/L ALT (7-56) units/L Alkaline Phosphatase (35-129) units/L Total Protein (6.3-8.2) g/dL Albumin (3.9-5) g/dL Albumin/Globulin Ratio % HCG, Qual (Negative) Urine Color [place]raw (Yellow) Urine Turbidity Clear (Clear) Urine pH 6.0 (5.0-7.0) Ur Specific [place] 1.010 (1.003-1.030) Urine Protein <15 mg/dl (Negative) mg/dL Urine Glucose (UA) Neg (Negative) mg/dL Urine Ketones Neg (Negative) mg/dL Urine Blood Neg (Negative) Urine Nitrite Neg (Negative) Urine Bilirubin Neg (Negative) Urine Urobilinogen < 2.0 (<2.0) mg/dL Ur Leukocyte Esterase Neg (Negative) Urine WBC (Auto) 1.0 (0.0-6.0) /HPF Urine RBC (Auto) 2.0 (0.0-6.0) /HPF U Epithel Cells (Auto) 3.0 (0-13.0) /HPF Urine Mucus Few /HPF - Medical Decision Making This is a 28-year-old -[place] female who presents with vaginal irritation and discharge for several days. Patient was examined by me. Vitals are stable and in no acute distress. Obtained labs and pelvic exam performed. Wet prep negative for Trichomonas, yeast, and clue cells. Gonorrhea and chlam ydia pending. All other labs are unremarkable. Referral to gynecology for follow-up. Discharged home in stable condition. Discussed prevention options. Critical care attestation.: If time is entered above; I have spent that time in minutes in the direct care of this critically ill patient, excluding procedure time. ED Disposition Clinical Impression: Vaginal discharge Disposition: DC-01 TO HOME OR SELFCARE Is pt being admited?: No Condition: Stable Instructions: Abdominal Pain (ED) Additional Instructions: Follow-up with a shoe parts molder from the referral list below. Referrals: [facility] [Provider Group] - 3-5 Days [facility] [Provider Group] - 3-5 Days [facility] [Provider Group] - 3-5 Days Forms: Work/School Release Form(ED) Time of Disposition: 09:58
[2019-01-22 08:12] LABS: Alanine Aminotransferase 14 units/L (7-56); Albumin 4.2 g/dL (3.9-5); BUN/Creatinine Ratio 16; Blood Urea Nitrogen 13 mg/dL (7-17); Calcium 9.4 mg/dL (8.4-10.2); Hemolysis Index 39
[2019-01-22] MEDS ORDERED: LIDOCAINE-MPF (1%) 10 MG/1 ML VIAL 5 ML INFILTRATI ONE (10:02)
[2019-01-22] MEDS ORDERED: AZITHROMYCIN 250 MG TAB PO ONE (10:02)
== END 2019-01-22 10:14 | disposition home or self-care (01) ==
LOC: ED 06:41
DX: N89.8 Other specified noninflammatory disorders of vagina (principal); Z79.899 Other long term (current) drug therapy
CPT/HCPCS: 36415; 80053; 81001; 84703; 85025; 87210; 87591

== ENCOUNTER 2019-03-12 10:23 | Emergency (ER) | payer OTHER ==
[2019-03-12] MEDS ORDERED: IBUPROFEN 600 MG TAB PO ONE (14:30)
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
[2019-03-12 15:48] VITALS: BP 133/79
== END 2019-03-12 18:06 | disposition home or self-care (01) ==
LOC: ED 10:23
DX: S80.12XA Contusion of left lower leg, initial encounter (principal); S80.11XA Contusion of right lower leg, initial encounter; F17.200 Nicotine dependence, unspecified, uncomplicated; V49.49XA Driver injured in collision with other motor vehicles in traffic accident, initial encounter; Y93.89 Activity, other specified; Y92.488 Other paved roadways as the place of occurrence of the external cause; Y99.8 Other external cause status
CPT/HCPCS: 72100; 99283

== ENCOUNTER 2021-01-21 07:39 | Emergency (ER) | payer SELFPAY ==
[2021-01-21 07:57] VITALS: BP 120/57
--- NOTE | 2021-01-21 07:57 | Emergency Department Report ---
ED Female HPI - General Chief complaint: Urogenital-Female Stated complaint: vaginal irritation Time Seen by Provider: 01/21/21 07:54 Source: patient Mode of arrival: Ambulatory Limitations: No Limitations - History of Present Illness Initial comments: The patient was evaluated in the emergency department for symptoms described in the history of present illness. He/she was evaluated in the context of the global COVID-19 pandemic, which necessitated consideration that the patient might be at risk for infection with the virus that causes COVID-19. Institutional protocols and algorithms that pertain to the evaluation of patients at risk for COVID-19 are in a state of rapid change based on information released by regulatory bodies including the CDC and federal and state organizations. These policies and algorithms were followed during the patient's care in the emergency department. Please note that these policies, procedures and recommendations changed on a rapid basis. 30-year-old -[place] female presents to the emergency room complaining of vaginal irritation. Patient states that she was treated for urinary tract infection on January 13, 2021 with Macrobid. She states since she has been taking the medication she has been having soreness.. She is has no concern for STD. She had a wet prep done last visit which was all normal. She has not tried any wwgu-jbw-fqlodua medication and did not follow-up with a [facility] PROGRAM COORDINATOR. Onset/Timin -: week(s) Severity scale (0 -10): 6 - Related Data Previous Rx's Medication Instructions Recorded Last Taken Type Acetaminophen/Codeine [Tylenol 1 tab PO Q6H PRN #12 tab 06/24/18 Unknown Rx /Codeine # 3 tab] Ibuprofen [Motrin 600 MG tab] 600 mg PO Q8H PRN #15 tablet 06/24/18 Unknown Rx Nitrofurantoin [place]/M-Cryst 100 mg PO Q12HR #14 capsule 10/25/18 Unknown Rx [Macrobid CAP] metroNIDAZOLE [Flagyl] 500 mg PO Q12HR #14 tab 10/25/18 Unknown Rx Fluconazole (Nf) [Diflucan TAB] 150 mg PO ONCE #1 tablet 11/24/18 Unknown Rx metroNIDAZOLE [Flagyl TAB] 500 mg PO Q12HR #14 tab 11/24/18 Unknown Rx Ibuprofen [Motrin] 600 mg PO Q8H PRN #24 tablet 03/12/19 Unknown Rx Naproxen [EC-Naprosyn] 500 mg PO BID #20 tablet. 01/13/21 Unknown Rx Nitrofurantoin [place]/M-Cryst 100 mg PO Q12HR #14 capsule 01/13/21 Unknown Rx [Macrobid CAP] Allergies Allergy/AdvReac Type Severity Reaction Status Date / Time No Known Allergies Allergy Verified 01/21/21 07:46 ED Review of Systems ROS: Stated complaint: vaginal irritation Other details as noted in HPI ED Past Medical Hx - Social History Smoking Status: Current Some Day Smoker Substance Use Type: None - Medications Home Medications: Home Medications Medication Instructions Recorded Confirmed Last Taken Type Acetaminophen/Codeine [Tylenol 1 tab PO Q6H PRN #12 tab 06/24/18 Unknown Rx /Codeine # 3 tab] Ibuprofen [Motrin 600 MG tab] 600 mg PO Q8H PRN #15 tablet 06/24/18 Unknown Rx Nitrofurantoin [place]/M-Cryst 100 mg PO Q12HR #14 capsule 10/25/18 Unknown Rx [Macrobid CAP] metroNIDAZOLE [Flagyl] 500 mg PO Q12HR #14 tab 10/25/18 Unknown Rx Fluconazole (Nf) [Diflucan TAB] 150 mg PO ONCE #1 tablet 11/24/18 Unknown Rx metroNIDAZOLE [Flagyl TAB] 500 mg PO Q12HR #14 tab 11/24/18 Unknown Rx Ibuprofen [Motrin] 600 mg PO Q8H PRN #24 tablet 03/12/19 Unknown Rx Naproxen [EC-Naprosyn] 500 mg PO BID #20 tablet. 01/13/21 Unknown Rx Nitrofurantoin [place]/M-Cryst 100 mg PO Q12HR #14 capsule 01/13/21 Unknown Rx [Macrobid CAP] ED Physical Exam - General Limitations: No Limitations General appearance: alert, in no apparent distress - Head Head exam: Present: atraumatic, normocephalic - Eye Eye exam: Present: normal appearance - ENT ENT exam: Present: mucous membranes moist - Neck Neck exam: Present: normal inspection - Respiratory Respiratory exam: Present: normal lung sounds bilaterally. Absent: respiratory distress - Cardiovascular Cardiovascular Exam: Present: regular rate, normal rhythm. Absent: systolic murmur, diastolic murmur, rubs, gallop - GI/Abdominal GI/Abdominal exam: Present: soft, normal bowel sounds - External exam: Present: erythema. Absent: swelling, lesions, bleeding Speculum exam: Present: normal speculum exam - Extremities Exam Extremities exam: Present: normal inspection - Back Exam Back exam: Present: normal inspection - Neurological Exam Neurological exam: Present: alert, oriented X3 - Psychiatric Psychiatric exam: Present: normal affect, normal mood - Skin Skin exam: Present: warm, dry, intact, normal color. Absent: rash ED Course Vital Signs 01/21/21 07:48 Temperature 98.2 F Pulse Rate 71 Respiratory 18 Rate Blood Pressure 120/57 O2 Sat by Pulse 98 Oximetry ED Medical Decision Making - Medical Decision Making 30-year-old -[place] female presents to the emergency room complaining of vaginal irritation. Patient states that she was treated for urinary tract infection on January 13, 2021 with Macrobid. She states since she has been taking the medication she has been having soreness.. She is has no concern for STD. She had a wet prep done last visit which was all normal. She has not tried any zuty-thg-dgzzfaz medication and did not follow-up with a [facility] PROGRAM COORDINATOR. Labia within normal limits around the vaginal orifice mild erythematous. Nonedematous no lesions appreciated Recommend kits-dsl-vdtbgtk vaginocele vaginal lubricant for friction and to follow-up with the CD[facility] PROGRAM COORDINATOR Critical care attestation.: If time is entered above; I have spent that time in minutes in the direct care of this critically ill patient, excluding procedure time. ED Disposition Clinical Impression: Vaginal irritation Disposition: HOME / SELF CARE / HOMELESS Is pt being admited?: No Does the pt Need Aspirin: No Condition: Stable Instructions: Vaginitis, Pkle-gc-Ayqw Additional Instructions: Recommend vurd-wun-ciqzwje Monistat or Vagisil to rub on the outer labia. Follow-up with a [facility] PROGRAM COORDINATOR. Tylenol or ibuprofen as needed for pain management. Be sure to increase your fluid intake. Referrals: [facility] [Provider Group] - 3-5 Days [facility] [Provider Group] - 3-5 Days Time of Disposition: 09:04
== END 2021-01-21 09:17 | disposition home or self-care (01) ==
LOC: ED 07:39
DX: N89.8 Other specified noninflammatory disorders of vagina (principal); F17.200 Nicotine dependence, unspecified, uncomplicated
CPT/HCPCS: 99281

== ENCOUNTER 2021-10-21 16:11 | Emergency (ER) | payer SELFPAY ==
[2021-10-21 16:21] VITALS: BP 95/62
== END 2021-10-21 22:30 ==
LOC: ED 16:11
DX: R10.9 Unspecified abdominal pain (principal); Z53.21 Procedure and treatment not carried out due to patient leaving prior to being seen by health care provider

== ENCOUNTER 2021-10-31 09:37 | Emergency (ER) | payer SELFPAY ==
[2021-10-31 11:52] LABS: Basophils % (Auto) 0.5 % (0.0-1.8); Eosinophils % (Auto) 0.6 % (0.0-4.3); Hematocrit 41.4 % (30.3-42.9); Hemoglobin 13.7 gm/dl (10.1-14.3); Lymphocytes # (Auto) 2.5 K/mm3 (1.2-5.4); Lymphocytes % (Auto) 43.7 % (13.4-35.0); Mean Corpuscular HGB Conc 33 % (30-34); Mean Corpuscular Volume 88 fl (79-97); Monocytes # (Auto) 0.4 K/mm3 (0.0-0.8); Monocytes % (Auto) 7.2 % (0.0-7.3); Platelet Count 308 K/mm3 (140-440); Red Blood Count 4.72 M/mm3 (3.65-5.03); Red Cell Distribution Width 13.6 % (13.2-15.2)
[2021-10-31 15:25] LABS: Bilirubin,Urine NEG (Negative); Blood,Urine SM (Negative); Color,Urine Yellow (Yellow); Urobilinogen,Urine < 2.0 mg/dL (<2.0)
[2021-10-31 15:29] LABS: Mucus,Urine 3+ /HPF
--- NOTE | 2021-10-31 15:42 | Emergency Department Report ---
ED Abdominal Pain HPI - General Chief Complaint: Vaginal Bleeding Stated Complaint: ABD PAIN/VAGINAL IRR/URINATION ISSUES Time Seen by Provider: 10/31/21 14:20 Source: patient Mode of arrival: Ambulatory Limitations: No Limitations - History of Present Illness Initial Comments: 30-year-old black female with no past medical history presents to the emergency department for evaluation of 2-week history of abdominal pain and dark urine. She states that she attempted to use some xwaq-vbm-xeazeau AZO without any improvement. She denies fever, nausea, vomiting, dysuria, and vaginal discharge. MD Complaint: abdominal pain -: Gradual, week(s) (2.) Location: suprapubic Radiation: none Migration to: no migration Severity: moderate Severity scale (0 -10): 6 Quality: cramping, aching Associated Symptoms: denies: nausea, vomiting, diarrhea, fever, chills, dysuria, hematemesis, hematochezia, melena, hematuria, anorexia, syncope Treatments Prior to Arrival: other (Xlgi-gir-swfcgzb Azo) - Related Data Previous Rx's Medication Instructions Recorded Last Taken Type Acetaminophen/Codeine [Tylenol 1 tab PO Q6H PRN #12 tab 06/24/18 Unknown Rx /Codeine # 3 tab] Ibuprofen [Motrin 600 MG tab] 600 mg PO Q8H PRN #15 tablet 06/24/18 Unknown Rx Nitrofurantoin [place]/M-Cryst 100 mg PO Q12HR #14 capsule 10/25/18 Unknown Rx [Macrobid CAP] metroNIDAZOLE [Flagyl] 500 mg PO Q12HR #14 tab 10/25/18 Unknown Rx Fluconazole (Nf) [Diflucan TAB] 150 mg PO ONCE #1 tablet 11/24/18 Unknown Rx metroNIDAZOLE [Flagyl TAB] 500 mg PO Q12HR #14 tab 11/24/18 Unknown Rx Ibuprofen [Motrin] 600 mg PO Q8H PRN #24 tablet 03/12/19 Unknown Rx Naproxen [EC-Naprosyn] 500 mg PO BID #20 tablet 01/13/21 Unknown Rx Nitrofurantoin [place]/M-Cryst 100 mg PO Q12HR #14 capsule 01/13/21 Unknown Rx [Macrobid CAP] cephALEXin [Keflex] 500 mg PO Q12HR 5 Days #10 cap 10/31/21 Unknown Rx Allergies Allergy/AdvReac Type Severity Reaction Status Date / Time No Known Allergies Allergy Verified 10/31/21 09:56 ED Review of Systems ROS: Stated complaint: ABD PAIN/VAGINAL IRR/URINATION ISSUES Other details as noted in HPI Comment: All other systems reviewed and negative Constitutional: denies: chills, fever, malaise, weakness ENT: denies: congestion Respiratory: denies: shortness of breath Cardiovascular: denies: chest pain, palpitations Gastrointestinal: abdominal pain. denies: nausea, vomiting, diarrhea, hematemesis, melena, hematochezia Genitourinary: denies: urgency, dysuria, frequency, hematuria, discharge, abnormal menses Musculoskeletal: denies: back pain Neurological: denies: headache, weakness ED Past Medical Hx - Social History Smoking Status: Never Smoker Substance Use Type: None - Medications Home Medications: Home Medications Medication Instructions Recorded Confirmed Last Taken Type Acetaminophen/Codeine [Tylenol 1 tab PO Q6H PRN #12 tab 06/24/18 Unknown Rx /Codeine # 3 tab] Ibuprofen [Motrin 600 MG tab] 600 mg PO Q8H PRN #15 tablet 06/24/18 Unknown Rx Nitrofurantoin [place]/M-Cryst 100 mg PO Q12HR #14 capsule 10/25/18 Unknown Rx [Macrobid CAP] metroNIDAZOLE [Flagyl] 500 mg PO Q12HR #14 tab 10/25/18 Unknown Rx Fluconazole (Nf) [Diflucan TAB] 150 mg PO ONCE #1 tablet 11/24/18 Unknown Rx metroNIDAZOLE [Flagyl TAB] 500 mg PO Q12HR #14 tab 11/24/18 Unknown Rx Ibuprofen [Motrin] 600 mg PO Q8H PRN #24 tablet 03/12/19 Unknown Rx Naproxen [EC-Naprosyn] 500 mg PO BID #20 tablet. 01/13/21 Unknown Rx Nitrofurantoin [place]/M-Cryst 100 mg PO Q12HR #14 capsule 01/13/21 Unknown Rx [Macrobid CAP] cephALEXin [Keflex] 500 mg PO Q12HR 5 Days #10 cap 10/31/21 Unknown Rx ED Physical Exam - General Limitations: No Limitations General appearance: alert, in no apparent distress - Head Head exam: Present: atraumatic, normocephalic - Eye Eye exam: Present: normal appearance. Absent: conjunctival injection - ENT ENT exam: Present: normal exam - Neck Neck exam: Present: normal inspection, full ROM. Absent: tenderness, lymphadenopathy - Respiratory Respiratory exam: Present: normal lung sounds bilaterally. Absent: respiratory distress, wheezes, rales, rhonchi, stridor, chest wall tenderness - Cardiovascular Cardiovascular Exam: Present: regular rate, normal heart sounds - GI/Abdominal GI/Abdominal exam: Present: soft, normal bowel sounds. Absent: distended, tenderness, guarding, rebound, rigid - Extremities Exam Extremities exam: Present: normal inspection, full ROM, normal capillary refill. Absent: tenderness, pedal edema, joint swelling, calf tenderness - Back Exam Back exam: Present: normal inspection. Absent: CVA tenderness (R), CVA tenderness (L) - Neurological Exam Neurological exam: Present: alert, oriented X3, CN II-XII intact, normal gait, reflexes normal. Absent: motor sensory deficit - Psychiatric Psychiatric exam: Present: normal affect, normal mood - Skin Skin exam: Present: warm, dry, intact, normal color ED Course Vital Signs 10/31/21 10/31/21 09:42 14:19 Temperature 98 F 96.8 F L Pulse Rate 73 77 Respiratory 18 16 Rate Blood Pressure 117/68 Blood Pressure 139/97 [Left] O2 Sat by Pulse 97 100 Oximetry ED Medical Decision Making - Lab Data Result diagrams: 10/31/21 11:28 - Medical Decision Making 30-year-old black female with no past medical history presents to the emergency department for evaluation of 2-week history of abdominal pain and dark urine. She states that she attempted to use some ctvn-rnz-rzsjogp AZO without any improvement. She denies fever, nausea, vomiting, dysuria, and vaginal discharge. Physical exam unremarkable. Labs without any gross abnormalities noted, and urine positive for urinary tract infection. Patient will be treated with 5-day course of Keflex 500 mg twice a day twice daily and advised to increase intake of noncaffeinated fluids and follow-up with her primary care provider if no improvement or worsening symptoms. She is advised to return to the emergency department as needed. She verbalizes understanding of and agreement with plan of care. Critical care attestation.: If time is entered above; I have spent that time in minutes in the direct care of this critically ill patient, excluding procedure time. ED Disposition Clinical Impression: Urinary tract infection Qualifiers: Urinary tract infection type: acute cystitis Hematuria presence: with hematuria Qualified Code(s): N30.01 - Acute cystitis with hematuria Disposition: HOME / SELF CARE / HOMELESS Is pt being admited?: No Does the pt Need Aspirin: No Condition: Stable Instructions: Antibiotic Medicine, Adult, Yese-xs-Xpcz, Urinary Tract Infection, Adult, [id number] Additional Instructions: Take medications as prescribed. Increase intake of noncaffeinated fluids. Follow-up with your primary care provider if no improvement or worsening symptoms. Return to the emergency department as needed. Prescriptions: cephALEXin [Keflex] 500 mg PO Q12HR 5 Days #10 cap Referrals: SPENCER LORENZO MD [Staff Physician] - 3-5 Days Time of Disposition: 15:45
[2021-10-31 16:15] VITALS: BP 128/70
== END 2021-10-31 16:15 | disposition home or self-care (01) ==
LOC: ED 09:37
DX: N39.0 Urinary tract infection, site not specified (principal)
CPT/HCPCS: 36415; 81001; 84702; 85025; 87086; 99283

== ENCOUNTER 2021-12-19 00:34 | Emergency (ER) | payer SELFPAY ==
--- NOTE | 2021-12-19 06:48 | Emergency Department Report ---
ED Female HPI - General Chief complaint: Urogenital-Female Stated complaint: VAGINAL IRRATION Time Seen by Provider: 12/19/21 06:13 Source: patient Mode of arrival: Ambulatory Limitations: No Limitations - History of Present Illness Initial comments: 31-year-old female presents to the emergency department with dysuria. Patient reports she has some vulvar irritation x2 days ever since she went to get wax. States usually get worse and has never had this issue occur before, she describes irritation in her right vulva, worse when she tries to urinate, she denies discharge, no bleeding, no pelvic pain, no nausea vomiting abdominal pain. States she might also have contacted an STD, sexually active female without use of condoms, denies being . Otherwise 10 point ROS is negative MD Complaint: dysuria, possible STD - Related Data Previous Rx's Medication Instructions Recorded Last Taken Type Acetaminophen/Codeine [Tylenol 1 tab PO Q6H PRN #12 tab 06/24/18 Unknown Rx /Codeine # 3 tab] Ibuprofen [Motrin 600 MG tab] 600 mg PO Q8H PRN #15 tablet 06/24/18 Unknown Rx Nitrofurantoin [place]/M-Cryst 100 mg PO Q12HR #14 capsule 10/25/18 Unknown Rx [Macrobid CAP] metroNIDAZOLE [Flagyl] 500 mg PO Q12HR #14 tab 10/25/18 Unknown Rx Fluconazole (Nf) [Diflucan TAB] 150 mg PO ONCE #1 tablet 11/24/18 Unknown Rx metroNIDAZOLE [Flagyl TAB] 500 mg PO Q12HR #14 tab 11/24/18 Unknown Rx Ibuprofen [Motrin] 600 mg PO Q8H PRN #24 tablet 03/12/19 Unknown Rx Naproxen [EC-Naprosyn] 500 mg PO BID #20 tablet. 01/13/21 Unknown Rx Nitrofurantoin [place]/M-Cryst 100 mg PO Q12HR #14 capsule 01/13/21 Unknown Rx [Macrobid CAP] Fluconazole (Nf) [Diflucan TAB] 150 mg PO ONCE #1 tablet 10/31/21 Unknown Rx cephALEXin [Keflex] 500 mg PO Q12HR 5 Days #10 cap 10/31/21 Unknown Rx Nystatin Cream [Mycostatin Cream] 1 applic TP QID 5 Days #1 tube 12/19/21 U nknown Rx Allergies Allergy/AdvReac Type Severity Reaction Status Date / Time No Known Allergies Allergy Verified 10/31/21 09:56 ED Review of Systems ROS: Stated complaint: VAGINAL IRRATION Other details as noted in HPI Constitutional: see HPI ENT: as per HPI Respiratory: see HPI Cardiovascular: as per HPI Gastrointestinal: denies: abdominal pain, nausea Genitourinary: dysuria Skin: denies: rash Neurological: denies: headache Psychiatric: denies: homicidal thoughts, suicidal thoughts ED Past Medical Hx - Social History Smoking Status: Never Smoker Substance Use Type: None - Medications Home Medications: Home Medications Medication Instructions Recorded Confirmed Last Taken Type Acetaminophen/Codeine [Tylenol 1 tab PO Q6H PRN #12 tab 06/24/18 Unknown Rx /Codeine # 3 tab] Ibuprofen [Motrin 600 MG tab] 600 mg PO Q8H PRN #15 tablet 06/24/18 Unknown Rx Nitrofurantoin [place]/M-Cryst 100 mg PO Q12HR #14 capsule 10/25/18 Unknown Rx [Macrobid CAP] metroNIDAZOLE [Flagyl] 500 mg PO Q12HR #14 tab 10/25/18 Unknown Rx Fluconazole (Nf) [Diflucan TAB] 150 mg PO ONCE #1 tablet 11/24/18 Unknown Rx metroNIDAZOLE [Flagyl TAB] 500 mg PO Q12HR #14 tab 11/24/18 Unknown Rx Ibuprofen [Motrin] 600 mg PO Q8H PRN #24 tablet 03/12/19 Unknown Rx Naproxen [EC-Naprosyn] 500 mg PO BID #20 tablet.dr 01/13/21 Unknown Rx Nitrofurantoin [place]/M-Cryst 100 mg PO Q12HR #14 capsule 01/13/21 Unknown Rx [Macrobid CAP] Fluconazole (Nf) [Diflucan TAB] 150 mg PO ONCE #1 tablet 10/31/21 Unknown Rx cephALEXin [Keflex] 500 mg PO Q12HR 5 Days #10 cap 10/31/21 Unknown Rx Nystatin Cream [Mycostatin Cream] 1 applic TP QID 5 Days #1 tube 12/19/21 Unknown Rx ED Physical Exam - General Limitations: No Limitations General appearance: alert, in no apparent distress - Head Head exam: Present: atraumatic - Eye Eye exam: Present: normal appearance - ENT ENT exam: Present: normal exam, normal orophraynx - Neck Neck exam: Present: normal inspection - Respiratory Respiratory exam: Present: normal lung sounds bilaterally - Cardiovascular Cardiovascular Exam: Present: regular rate, normal rhythm - GI/Abdominal GI/Abdominal exam: Present: soft. Absent: distended, tenderness - External exam: Present: erythema, other (Erythema of the vulva and the labia.) - Extremities Exam Extremities exam: Present: normal inspection, full ROM - Back Exam Back exam: Present: normal inspection, full ROM - Neurological Exam Neurological exam: Present: alert, oriented X3, CN II-XII intact, normal gait - Psychiatric Psychiatric exam: Present: normal affect, normal mood - Skin Skin exam: Present: warm, dry, intact, normal color ED Course Vital Signs 12/19/21 00:38 Temperature 98.4 F Pulse Rate 69 Respiratory 20 Rate Blood Pressure 124/68 O2 Sat by Pulse 100 Oximetry ED Medical Decision Making - Medical Decision Making GC gonorrhea chlamydia pending, based on her examination most likely vaginitis, treated with topical therapy. In the meantime encourage patient to avoid sexual activity, follow-up with OB for further STI testing including HIV, always wear a condom. Patient remained stable nontoxic-appearing, afebrile, ambulating steadily without assistance. Gone over ED findings with patient as well as plan for follow-up. Also discussed return precautions with patient, all questions and concerns addressed. Patient is stable to be discharged follow-up outpatient. Audio voice dictation device used, hence the chart might contain some dictation errors, mispronunciations, wrong spelling and wrong verbiage. Critical care attestation.: If time is entered above; I have spent that time in minutes in the direct care of this critically ill patient, excluding procedure time. ED Disposition Clinical Impression: Vaginitis and vulvovaginitis Disposition: HOME / SELF CARE / HOMELESS Is pt being admited?: No Does the pt Need Aspirin: No Condition: Stable Instructions: Vaginitis Prescriptions: Nystatin Cream [Mycostatin Cream] 1 applic TP QID 5 Days #1 tube Referrals: SPENCER LORENZO MD [Primary Care Provider] - 3-5 Days
[2021-12-19 07:44] VITALS: BP 118/72
== END 2021-12-19 07:43 | disposition home or self-care (01) ==
LOC: ED 00:34
DX: N76.0 Acute vaginitis (principal); N77.1 Vaginitis, vulvitis and vulvovaginitis in diseases classified elsewhere; Z79.899 Other long term (current) drug therapy
CPT/HCPCS: 87591; 99282; 99283